=== PATIENT | female | born 1985 | race Caucasian/White ===

== ENCOUNTER → 2016-09-29 | Outpatient (REF) ==
--- NOTE | 2016-09-29 10:44 | REP ---
THORACIC SPINE, THREE VIEWS: HISTORY: Degenerative disc disease. There is no acute fracture or subluxation. The intervertebral discs are normal in height. Small anterior osteophytes are present in the mid and lower thoracic spine. There is minimal scoliosis convex to the left. IMPRESSION: Degenerative change as described above. Signed by Claude Eden MD 09/29/2016 10:55 A
--- NOTE | 2016-09-29 10:47 | REP ---
RIGHT SHOULDER, THREE VIEWS: HISTORY: Degenerative joint disease. There is no acute fracture or dislocation. The joint spaces are normal in appearance. IMPRESSION: There is no acute fracture or dislocation. Signed by Claude Eden MD 09/29/2016 10:56 A
--- NOTE | 2016-09-29 10:47 | REP ---
LUMBAR SPINE, THREE VIEWS: HISTORY: Degenerative disc disease. 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 There is sacralization of the L5 vertebral body. There is no acute fracture or subluxation. The L3-4 intervertebral disc is decreased in height consistent with disc degeneration. IMPRESSION: Degenerative change as described above. Signed by Claude Eden MD 09/29/2016 10:56 A
--- NOTE | 2016-09-29 10:49 | REP ---
SINUSES, FOUR VIEWS: HISTORY: Degenerative disc disease. The sinuses are clear. There is no fracture or bone lesion. IMPRESSION: Normal study. Signed by Claude Eden MD 09/29/2016 10:55 A
--- NOTE | 2016-09-29 10:56 | REP ---
LEFT HIP, TWO VIEWS: HISTORY: Degenerative joint disease. There is no acute fracture or dislocation. The joint space is normal in appearance. IMPRESSION: There is no acute fracture or dislocation. Signed by Claude Eden MD 09/29/2016 10:56 A
== END ==
LOC: M SMT 09:47
PROVIDERS: ATTEND Internal Medicine
DX: Z00.00 Encounter for general adult medical examination without abnormal findings (principal)